=== PATIENT | female | born 1975 ===

== ENCOUNTER 2024-10-20 12:22 | Day surgery (SDC) | payer OTHER ==
[~2024-10-20] VITALS: Ht 144.8 cm; Wt 55.2 kg
[~2024-10-20 12:22] MED LIST: Lactated Ringer's 1,000 ML IV ONE; propofoL 50 ML IV ONE
[2024-10-20] MEDS ORDERED: Lactated Ringer's 1,000 ML IV ONE (13:27)
[2024-10-20 14:20] VITALS: BP 100/54
== END 2024-10-20 14:23 | disposition home or self-care (01) ==
LOC: ORSCSDS 12:22
PROVIDERS: Surgery
PROC: 0DJD8ZZ Inspection of Lower Intestinal Tract, Via Natural or Artificial Opening Endoscopic (ICD-10-PCS; principal; 2024-10-20 13:45)
DX: Z12.11 Encounter for screening for malignant neoplasm of colon (principal); Z83.719 Family history of colon polyps, unspecified; E78.5 Hyperlipidemia, unspecified; R73.03 Prediabetes; R62.50 Unspecified lack of expected normal physiological development in childhood
CPT/HCPCS: J2704; J7120